=== PATIENT | male | born 1965 | race Two or more races ===

== ENCOUNTER 2021-02-09 10:54 | Day surgery (SDC) | payer MEDICAID ==
[~2021-02-09] VITALS: Ht 195.6 cm; Wt 72.6 kg
[2021-02-09] MEDS ORDERED: IV NS 0.9% 250 ML IV ONE (11:19)
[2021-02-09] MEDS ORDERED: IOHEXOL-350 100 ML VIAL IV ONE (11:19)
[2021-02-09] MEDS: METOPROLOL TARTRATE INJ 5 MG/5 ML AMPUL IVP PRN ×4 (11:27→11:42)
[2021-02-09] MEDS ORDERED: NITROGLYCERIN 0.4 MG/TAB BOTTLE SL ONE (11:30)
[2021-02-09] MEDS ORDERED: IV NS 0.9% 500 ML IV PRN (11:30)
[2021-02-09] MEDS ORDERED: METOPROLOL TARTRATE INJ 5 MG/5 ML AMPUL ONE (11:31)
[2021-02-09] MEDS ORDERED: NITROGLYCERIN 0.4 MG/TAB BOTTLE ONE (11:31)
[2021-02-09 11:45] VITALS: BP 99/70
--- NOTE | 2021-02-09 11:50 | NUR ---
BIB ambulance from [facility] for CTA Heart; AAO;4 denies CP or SOB, consented to CTA heart; tlerated procedure; received metoprolol 5 mg ivoevery5 minutes x5 and NTG 0.4 mg SL; tolerated procedure, post procedure VSS; report given to ALS personnel and sent back to [facility]
== END 2021-02-09 23:59 | disposition home or self-care (01) ==
LOC: CT 10:54
PROVIDERS: ATTEND Internal Medicine Interventional Cardiology
DX: I25.10 Atherosclerotic heart disease of native coronary artery without angina pectoris (principal)
CPT/HCPCS: 75574; J3490; J7050; Q9967